=== PATIENT | male | born 1995 | race Caucasian/White ===

== ENCOUNTER → 2017-02-01 | Outpatient (CLI) | payer OTHER ==
[~2017-02-01] MED LIST: ALBUTEROL0.09 MG/A2 INH; AMOXICILLIN500 MG PO; ANAPROX DS550 MG PO; AUGMENTIN 875875 MG PO; AUGMENTIN ES-6050 ML PO; BENTYL10 MG PO; CEPHALEXIN500 M1 PO; CLARITIN-D 10 M1 T21 PO; COMPOUND W TP; CYCLOBENZAPRINE5 M3 PO; DIAZEPAM2 MG PO; IBU800 MG PO; KEFLEX500 MG PO; MEDROL DOSEPAK4 MG PO; METFORMIN500 MG PO; MOTRIN400 MG PO; MOTRIN600 MG PO; MOTRIN800 MG PO; ROBITUSSIN DM120 ML PO; TESSALON PERLE100 M1 PO; VENTOLIN PO; ZITHROMAX Z PA250 MG PO; ZITHROMAX250 MG PO
[2017-02-01 09:48] LABS: BASO # 0.1 10*3/uL (0.0-0.1); BASO % 0.7 % (0.0-1.0); EOS # 0.2 10*3/uL (0.0-0.4); HEMATOCRIT 44.3 % (42.0-52.0); HEMOGLOBIN 15.1 g/dl (14.0-18.0); LYMPH # 2.5 10*3/uL (1.3-4.4); LYMPH % 34.4 % (27.0-41.0); MEAN CELL VOLUME 83.9 fl (80.0-94.0); MEAN CORPUSCULAR HGB 28.6 pg (27.0-31.0); MEAN CORPUSCULAR HGB CONC 34.1 g/dl (33.0-37.0); MEAN PLATELET VOLUME 10.4 fl (9.6-12.3); MONO # 0.7 10*3/uL (0.1-1.0); MONO % 9.7 % (3.0-9.0); NEUT # 3.9 10*3/uL (2.3-7.9); NEUT % 52.8 % (47.0-73.0); PLATELET COUNT AUTOMATED 257 10*3/uL (130-400); RED BLOOD COUNT 5.28 10*6/uL (4.50-5.90); RED CELL DISTRI WIDTH 12.7 % (0-14.5); WHITE BLOOD COUNT 7.3 10*3/uL (4.8-10.8)
[2017-02-01 10:04] LABS: HEMOGLOBIN A1c 5.3 % (4.8-5.6)
[2017-02-01 10:16] LABS: ALBUMIN 3.7 gm/dl (3.1-4.5); ALKALINE PHOSPHATASE 70 U/L (45-117); BILIRUBIN, TOTAL 0.5 mg/dl (0.2-1.0); BUN 14 mg/dl (7-24); CARBON DIOXIDE 25 mmol/L (21-32); CHLORIDE 109 mmol/L (98-107); CHOLESTEROL 176 mg/dL (<200); EST GLOM FILT AFRICAN AMERICAN > 60 ml/min; GLUCOSE 81 mg/dL (65-99); HDL CHOLESTEROL 33 mg/dl (40-60); LDL CHOLESTEROL 115 mg/dL (9-159); POTASSIUM 3.9 mmol/L (3.5-5.1); SGOT/AST 15 IU/L (3-35); SGPT/ALT 22 U/L (12-78); SODIUM 144 mmol/L (136-145); TOTAL PROTEIN 7.6 gm/dL (6.4-8.2); TRIGLYCERIDES 139 mg/dl (<150); VLDL CHOLESTEROL 28 mg/dL (6-40)
== END | disposition home or self-care (01) ==
LOC: LAB 08:57
PROVIDERS: Pediatrics
DX: E66.9 Obesity, unspecified (principal); L02.91 Cutaneous abscess, unspecified; R10.9 Unspecified abdominal pain

== ENCOUNTER 2018-11-08 23:46 | Emergency (ER) | payer OTHER ==
[~2018-11-08] VITALS: Ht 177.8 cm; Wt 138.8 kg
[2018-11-08 23:48] VITALS: BP 132/85
[2018-11-09] MEDS ORDERED: TESSALON PERLE100 MG PO (00:32)
[2018-11-09] MEDS ORDERED: PREDNISONE50 MG PO (00:32)
== END 2018-11-09 00:44 | disposition home or self-care (01) ==
LOC: ED 23:46
DX: J40 Bronchitis, not specified as acute or chronic (principal)

== ENCOUNTER 2019-02-19 20:10 | Emergency (ER) | payer OTHER ==
[~2019-02-19] VITALS: Ht 177.8 cm; Wt 145.1 kg
[~2019-02-19 20:10] MED LIST changes: +PREDNISONE50 MG PO; +TESSALON PERLE100 MG PO
[2019-02-19 20:14] VITALS: BP 114/70
[2019-02-19] MEDS ORDERED: CEPHALEXIN500 M1 PO (20:25)
[2019-02-19] MEDS ORDERED: PREDNISONE20 M1 PO (20:25)
== END 2019-02-19 20:30 | disposition home or self-care (01) ==
LOC: ED 20:10
DX: L23.7 Allergic contact dermatitis due to plants, except food (principal)

== ENCOUNTER 2019-09-11 17:16 | Emergency (ER) | payer OTHER ==
[~2019-09-11] VITALS: Ht 177.8 cm; Wt 140.6 kg
[2019-09-11 17:16] VITALS: BP 105/49
[~2019-09-11 17:16] MED LIST changes: +PREDNISONE20 M1 PO
[2019-09-11] MEDS ORDERED: AMOXICILLIN500 M2 PO (19:01)
== END 2019-09-11 19:25 | disposition home or self-care (01) ==
LOC: ED 17:16
DX: J06.9 Acute upper respiratory infection, unspecified (principal); J45.909 Unspecified asthma, uncomplicated; Z79.899 Other long term (current) drug therapy; Z79.2 Long term (current) use of antibiotics

== ENCOUNTER 2020-11-24 17:12 | Emergency (ER) | payer SELFPAY ==
[~2020-11-24] VITALS: Ht 175.2 cm; Wt 146.5 kg
[~2020-11-24 17:12] MED LIST changes: +AMOXICILLIN500 M2 PO
[2020-11-24 17:20] VITALS: BP 134/72
[2020-11-24] MEDS ORDERED: PROVENTIL HFA6.7 GM INH (19:42)
[2020-11-24] MEDS ORDERED: PREDNISONE20 M1 PO (19:42)
== END 2020-11-24 19:43 | disposition home or self-care (01) ==
LOC: ED 17:12
DX: J20.8 Acute bronchitis due to other specified organisms (principal); J45.909 Unspecified asthma, uncomplicated; Z20.822 Contact with and (suspected) exposure to COVID-19; Z79.899 Other long term (current) drug therapy; Z79.2 Long term (current) use of antibiotics

== ENCOUNTER 2021-06-01 17:20 | Emergency (ER) | payer SELFPAY ==
[~2021-06-01] VITALS: Ht 175.2 cm; Wt 140.2 kg
[~2021-06-01 17:20] MED LIST changes: +PROVENTIL HFA6.7 GM INH
[2021-06-01 20:16] VITALS: BP 124/79
== END 2021-06-02 00:11 | disposition left against medical advice (07) ==
LOC: ED 17:20
DX: R51.9 Headache, unspecified (principal); Z53.21 Procedure and treatment not carried out due to patient leaving prior to being seen by health care provider

== ENCOUNTER 2022-01-08 19:23 | Emergency (ER) | payer SELFPAY ==
[~2022-01-08] VITALS: Ht 175.2 cm; Wt 90.7 kg
[2022-01-08 19:26] VITALS: BP 126/78
[2022-01-08 19:40] LABS: BASO # 0.1 10*3/uL (0.0-0.1); BASO % 0.5 % (0.0-1.0); EOS # 0.2 10*3/uL (0.0-0.4); EOS % 1.6 % (1.0-4.0); HEMATOCRIT 44.7 % (42.0-52.0); LYMPH % 18.2 % (27.0-41.0); MEAN CELL VOLUME 83.1 fl (80.0-94.0); MEAN CORPUSCULAR HGB 28.3 pg (27.0-31.0); MEAN PLATELET VOLUME 10.5 fl (9.6-12.3); MONO # 0.9 10*3/uL (0.1-1.0); NEUT % 71.3 % (47.0-73.0); PLATELET COUNT AUTOMATED 295 10*3/uL (130-400); RED BLOOD COUNT 5.38 10*6/uL (4.50-5.90); WHITE BLOOD COUNT 11.2 10*3/uL (4.8-10.8)
[2022-01-08 19:56] LABS: ALKALINE PHOSPHATASE 76 U/L (45-117); BUN 18 mg/dl (7-24); CHLORIDE 111 mmol/L (98-107); CREATININE 0.91 mg/dL (0.70-1.30); POTASSIUM 3.6 mmol/L (3.5-5.1); SGOT/AST 13 IU/L (3-35); SGPT/ALT 25 U/L (12-78); SODIUM 142 mmol/L (136-145); TOTAL PROTEIN 7.4 gm/dL (6.4-8.2)
== END 2022-01-08 22:21 | disposition home or self-care (01) ==
LOC: ED 19:23
PROVIDERS: Internal Medicine
DX: R07.89 Other chest pain (principal)

== ENCOUNTER 2022-03-17 19:46 | Emergency (ER) | payer SELFPAY ==
[2022-03-17 20:00] VITALS: BP 136/72
== END 2022-03-18 00:25 | disposition home or self-care (01) ==
LOC: ED 19:46
DX: S82.891A Other fracture of right lower leg, initial encounter for closed fracture (principal); Z90.89 Acquired absence of other organs; W10.9XXA Fall (on) (from) unspecified stairs and steps, initial encounter; Y93.89 Activity, other specified; Y92.89 Other specified places as the place of occurrence of the external cause; Y99.8 Other external cause status

== ENCOUNTER → 2022-11-25 | Outpatient (CLI) | payer BC ==
[2022-11-25 15:25] LABS: BASO # 0.1 10*3/uL (0.0-0.1); BASO % 0.7 % (0.0-1.0); EOS # 0.1 10*3/uL (0.0-0.4); EOS % 1.3 % (1.0-4.0); HEMATOCRIT 45.3 % (42.0-52.0); LYMPH # 2.5 10*3/uL (1.3-4.4); LYMPH % 27.6 % (27.0-41.0); MEAN CELL VOLUME 84.8 fl (80.0-94.0); MEAN CORPUSCULAR HGB 28.3 pg (27.0-31.0); MEAN CORPUSCULAR HGB CONC 33.3 g/dl (33.0-37.0); MEAN PLATELET VOLUME 10.7 fl (9.6-12.3); MONO # 0.8 10*3/uL (0.1-1.0); MONO % 8.7 % (3.0-9.0); NEUT # 5.5 10*3/uL (2.3-7.9); NEUT % 61.4 % (47.0-73.0); PLATELET COUNT AUTOMATED 273 10*3/uL (130-400); RED BLOOD COUNT 5.34 10*6/uL (4.50-5.90); RED CELL DISTRI WIDTH 12.7 % (0-14.5); WHITE BLOOD COUNT 8.9 10*3/uL (4.8-10.8)
[2022-11-25 15:51] LABS: ALKALINE PHOSPHATASE 71 U/L (46-116); BUN 20 mg/dl (9-23); CHLORIDE 108 mmol/L (98-107); CHOLESTEROL 167 mg/dL (<200); FREE T4 1.13 ng/dl (0.89-1.76); LDL CHOLESTEROL 108 mg/dL (9-159); POTASSIUM 4.5 mmol/L (3.4-5.1); SGPT/ALT 16 U/L (10-49); THYROID STIM HORMONE (HS) 2.696 uIU/ml (0.550-4.780); TOTAL PROTEIN 7.4 gm/dL (6.0-8.0); TRIGLYCERIDES 115 mg/dl (<150)
[2022-11-25 16:15] LABS: VITAMIN D, 25-HYDROXY 32.7 ng/mL (30-100)
== END | disposition home or self-care (01) ==
LOC: LAB 14:54
PROVIDERS: ATTEND Internal Medicine
DX: Z13.220 Encounter for screening for lipoid disorders (principal); Z13.0 Encounter for screening for diseases of the blood and blood-forming organs and certain disorders involving the immune mechanism; Z13.1 Encounter for screening for diabetes mellitus; Z13.21 Encounter for screening for nutritional disorder; Z13.6 Encounter for screening for cardiovascular disorders; Z13.820 Encounter for screening for osteoporosis; E55.9 Vitamin D deficiency, unspecified

== ENCOUNTER 2023-04-09 06:54 | Emergency (ER) | payer OTHER ==
[~2023-04-09] VITALS: Ht 175.2 cm; Wt 149.7 kg
[2023-04-09] MEDS ORDERED: CEPHALEXIN500 M1 PO (08:43)
== END 2023-04-09 08:53 | disposition home or self-care (01) ==
LOC: ED 06:54
DX: S61.211A Laceration without foreign body of left index finger without damage to nail, initial encounter (principal); J45.909 Unspecified asthma, uncomplicated; Z98.890 Other specified postprocedural states; W26.8XXA Contact with other sharp object(s), not elsewhere classified, initial encounter; Y93.89 Activity, other specified; Y92.89 Other specified places as the place of occurrence of the external cause; Y99.0 Civilian activity done for income or pay

== ENCOUNTER 2024-11-03 17:01 | Emergency (ER) | payer OTHER ==
[~2024-11-03] VITALS: Wt 158.8 kg
[2024-11-03 17:01] VITALS: BP 136/85
[2024-11-03] MEDS ORDERED: Tdap Vaccine 0.5 ML SYR (Adult Vaccine) IM ONE (17:05)
[2024-11-03] MEDS ORDERED: CEPHALEXIN 500 MG CAP PO ONE (17:05)
[2024-11-03] MEDS ORDERED: CEPHALEXIN500 M1 PO (17:10)
[2024-11-03] MEDS ORDERED: Lidocaine Hydrochloride 5 ML AMP SC ONE (17:15)
== END 2024-11-03 18:14 | disposition home or self-care (01) ==
LOC: ED 17:01
DX: S81.812A Laceration without foreign body, left lower leg, initial encounter (principal); F90.9 Attention-deficit hyperactivity disorder, unspecified type; J45.909 Unspecified asthma, uncomplicated; Z98.890 Other specified postprocedural states; V49.9XXA Car occupant (driver) (passenger) injured in unspecified traffic accident, initial encounter; Y93.89 Activity, other specified; Y92.410 Unspecified street and highway as the place of occurrence of the external cause; Y99.8 Other external cause status

== ENCOUNTER 2024-11-03 20:19 | Emergency (ER) | payer OTHER ==
[2024-11-03 21:10] LABS: BASO # 0.1 10*3/uL (0.0-0.1); BASO % 0.4 % (0.0-1.0); EOS % 0.3 % (1.0-4.0); HEMATOCRIT 46.2 % (42.0-52.0); MEAN CELL VOLUME 85.4 fl (80.0-94.0); MEAN CORPUSCULAR HGB 28.1 pg (27.0-31.0); MEAN CORPUSCULAR HGB CONC 32.9 g/dl (33.0-37.0); MEAN PLATELET VOLUME 10.1 fl (9.6-12.3); MONO # 0.9 10*3/uL (0.1-1.0); MONO % 6.5 % (3.0-9.0); NEUT # 11.9 10*3/uL (2.3-7.9); NEUT % 82.9 % (47.0-73.0); PLATELET COUNT AUTOMATED 326 10*3/uL (130-400); RED BLOOD COUNT 5.41 10*6/uL (4.50-5.90); RED CELL DISTRI WIDTH 12.8 % (0-14.5); WHITE BLOOD COUNT 14.4 10*3/uL (4.8-10.8)
[2024-11-03 21:34] LABS: ALKALINE PHOSPHATASE 82 U/L (46-116); BUN 11 mg/dl (9-23); CHLORIDE 104 mmol/L (98-107); POTASSIUM 3.5 mmol/L (3.4-5.1); SGPT/ALT 26 U/L (5-49); TOTAL PROTEIN 7.5 gm/dL (6.0-8.0)
[2024-11-03] MEDS ORDERED: SODIUM CHLORIDE 0.9% 1,000 ML IV ONE (21:35)
[2024-11-03] MEDS ORDERED: Ketorolac Tromethamine 30 MG/ML VIAL IV ONE (23:55)
[2024-11-04 00:54] VITALS: BP 110/65
== END 2024-11-04 01:20 | disposition home or self-care (01) ==
LOC: ED 20:19
PROVIDERS: Emergency Medicine
DX: R07.89 Other chest pain (principal); R42 Dizziness and giddiness; J45.909 Unspecified asthma, uncomplicated; F90.9 Attention-deficit hyperactivity disorder, unspecified type; Z98.890 Other specified postprocedural states; V49.40XA Driver injured in collision with unspecified motor vehicles in traffic accident, initial encounter; Y93.89 Activity, other specified; Y92.410 Unspecified street and highway as the place of occurrence of the external cause; Y99.8 Other external cause status

== ENCOUNTER → 2024-11-24 | Outpatient (CLI) | payer SELFPAY | END | disposition home or self-care (01) | LOC: US 14:13 | PROVIDERS: ATTEND Internal Medicine | DX: R22.41 Localized swelling, mass and lump, right lower limb (principal); M79.604 Pain in right leg ==

== ENCOUNTER → 2025-01-21 | Outpatient (CLI) | payer SELFPAY | END | disposition home or self-care (01) | LOC: WOUNDCARE 00:35 | PROVIDERS: ATTEND Nurse Practitioner Family | DX: S81.812D Laceration without foreign body, left lower leg, subsequent encounter (principal); Z98.890 Other specified postprocedural states; Z79.899 Other long term (current) drug therapy; X58.XXXD Exposure to other specified factors, subsequent encounter ==

== ENCOUNTER → 2025-01-28 | Outpatient (CLI) | payer SELFPAY | END | disposition home or self-care (01) | LOC: WOUNDCARE 02:35 → RAD 03:00 → WOUNDCARE 06:31 | PROVIDERS: ATTEND Nurse Practitioner Family | DX: S81.812D Laceration without foreign body, left lower leg, subsequent encounter (principal); Z98.890 Other specified postprocedural states; Z79.899 Other long term (current) drug therapy; X58.XXXD Exposure to other specified factors, subsequent encounter ==